=== PATIENT | male | born 1990 | race African-American/Black ===

== ENCOUNTER 2019-08-29 22:14 | Emergency (ER) | payer OTHER, SELFPAY ==
[2019-08-29 22:15] VITALS: BP 134/81; PULSE 89; RESP 16; TEMP 37; O2SAT 99; BMI 24.3
[2019-08-29 22:56] VITALS: BP 139/75; PULSE 87; RESP 18; O2SAT 99
[2019-08-29 23:16] VITALS: BP 141/84; PULSE 79; RESP 18; O2SAT 99
[2019-08-29 23:22] LABS: Chloride 105 mmol/L (98-107); Potassium 4.1 mmoL/L (3.5-5.1); Sodium 139 mmol/L (136-145)
[2019-08-29 23:25] LABS: Alanine Aminotransferase 42 U/L (12-78); Albumin Level 4.5 g/dl (3.5-5.0); Albumin/Globulin Ratio 1.6 (1.1-1.8); Alkaline Phosphatase 50 U/L (38-126); Anion Gap 9.1 mEq/L (5-15); Aspartate Amino Transferase 40 U/L (17-59); Bilirubin,Total 1.2 mg/dl (0.2-1.3); Blood Urea Nitrogen 17 mg/dl (9-20); Carbon Dioxide 29 mmol/L (22.0-30.0); Creatinine Clearance Estimated 111 mL/min (50-200); Estimated Glomerular Filt Rate 72 ml/min (>60); GFR (African American) 87 ML/MIN (>60); Globulin 2.9 g/dL (1.3-3.2); Total Protein,Serum 7.4 g/dl (6.3-8.2)
[2019-08-29 23:26] LABS: Calcium 9.2 mg/dl (8.4-10.2); Glucose 84 mg/dl (74-100)
[2019-08-29 23:31] LABS: Basophils % 0.5 % (0.1-2.0); Eosinophils # 0.1 K/mm3 (0.0-0.4); Eosinophils % 1.8 % (0.1-12.0); Hematocrit 43.7 % (42.0-52.0); Hemoglobin 15.2 g/dL (14.1-18.0); Lymphocytes # 2.3 K/mm3 (0.7-4.5); Lymphocytes % 43.2 % (10-50); Mean Corpuscular HGB Conc 34.9 g/dL (31.8-35.4); Mean Corpuscular Hemoglobin 30.4 pg (27.0-31.2); Mean Platelet Volume 7.3 fl (7.4-10.4); Monocytes # 0.2 K/mm3 (0.1-1.0); Monocytes % 4.4 % (1.7-9.3); Neutrophils # 2.6 K/mm3 (1.8-7.8); Neutrophils % 50.1 % (37.0-80.0); Platelet Count 310 K/mm3 (142-424); Red Blood Count 5.02 M/mm3 (4.60-6.20); Red Cell Distribution Width 13.2 % (11.5-17.5); White Blood Count 5.2 K/mm3 (4.8-10.8)
--- NOTE | 2019-08-29 23:40 | HMH.EDGENADL ---
ED Disposition Clinical Impression: Otitis media Qualifiers: Otitis media type: unspecified Chronicity: acute Qualified Code(s): H66.90 - Otitis media, unspecified, unspecified ear Disposition: Home, Self-Care Condition on Discharge: Good Instructions: DI for Ear Pain-Adult Additional Instructions: await covid results and quaratine till recieved Prescriptions: cephALEXin [Keflex 500mg Cap] 500 mg PO TID #30 cap Prescription Printed predniSONE [Prednisone 20mg Tab] 20 mg PO BID #10 tab Prescription Printed Referrals: Chaka Joaquin MD [Primary Care Provider] - - Critical Care Critical Care Time: No Attestation: On 08/29/19, the high probability of a clinically significant, sudden or life threatening deterioration of the following system(s) required my full and direct attention, intervention and personal management. The time I documented below is in addition to time spent performing reported procedures but includes the following listed in this critical care notation. Medical Decision Making - Medical Records Medical records reviewed: Yes: I reviewed the patient's medical records. - Juan Inquiry Pt receiving controlled substance: No Vital Signs: 08/29/19 22:15 08/29/19 22:56 08/29/19 23:16 Temperature 98.6 F Temperature Source Oral Pulse Rate [Left Radial] 89 87 79 Respiratory Rate 16 18 18 Blood Pressure [Right Arm] 134/81 139/75 141/84 H Blood Pressure Mean [Right Arm] 98 96 103 Blood Pressure Source [Right Arm] Automatic Cuff Blood Pressure Position [Right Arm] Sitting 02 Sat by Pulse Oximetry 99 99 99 Oxygen Delivery Method Room Air Room Air Room Air - Lab Data Lab results reviewed: Yes: I reviewed the patient's lab results. Lab Results 08/29/19 23:02: WBC 5.2, RBC 5.02, Hgb 15.2, Hct 43.7, MCV 87.0, MCH 30.4, MCHC 34.9, RDW 13.2, Plt Count 310, MPV 7.3 L, Neut % (Auto) 50.1, Lymph % (Auto) 43.2, Bent % (Auto) 4.4, Eos % (Auto) 1.8, Baso % (Auto) 0.5, Neut # (Auto) 2.6, Lymph # (Auto) 2.3, Bent # (Auto) 0.2, Eos # (Auto) 0.1, Baso # (Auto) 0.0 08/29/19 23:02: Sodium 139, Potassium 4.1, Chloride 105, Carbon Dioxide 29, Anion Gap 9.1, BUN 17, Creatinine 1.20, Estimated Creat Clear 111, Estimated GFR 72, Est GFR ( Amer) 87, Glucose 84, Calcium 9.2, Total Bilirubin 1.2, AST 40, ALT 42, Alkaline Phosphatase 50, Total Protein 7.4, Albumin 4.5, Globulin 2.9, Albumin/Globulin Ratio 1.6 08/29/19 23:02: SARS-CoV-2 IgG Ab (Rapid) Negative, SARS-CoV-2 IgM Ab (Rapid) Negative Result diagrams: 08/29/19 23:02 08/29/19 23:02 Orders (Tests/Meds): ORDERS Category Date Time Status SARS-CoV-2, LACI Stat Lab 08/29/19 22:52 Received Urinalysis and Microscopic Stat Lab 08/29/19 23:42 Ordered General Adult HPI - General Chief complaint: Recheck/Abnormal Lab/Rx Stated complaint: fever Time Seen by Provider: 08/29/19 23:41 Mode of Arrival: Ambulatory Source of Information: Patient, Spouse, Medical Record Limitations: No Limitations Description of Symptoms (Recalled from ER Triage Doc. by RN): pt works at [employer] and came in from his lunch break from smoking outside and the [employer] body scanner read his temp. as high . [facility] [employer] group leader sent him for evaluation. pt denies any symptoms at this time. - History of Present Illness HPI narrative: sent from work with elevated temp and concern about covid exposure - he has no known exposure - no cough or resp sx but has rt ear feels full over the last few days - no rash - Onset (ago): hour(s) Severity: mild Associated symptoms: denies other symptoms Treatments prior to arrival: none - Related Data Previous Rx's Medication Instructions Recorded Fluconazole [Diflucan 100mg tablet] 100 mg PO DAILY #5 tab 05/16/19 Minocycline HCl [Minocycline HCl 100 mg PO BID #20 tab 05/16/19 100mg Tab*] cephALEXin [Keflex 500mg Cap] 500 mg PO TID #30 cap 08/30/19 predniSONE [Prednisone 20mg 20 mg PO BID #10 tab 08/30/19 Tab] Allergies
[2019-08-29 23:51] LABS: Coronavirus 19 IgG Antibody Negative (Negative); Coronavirus 19 IgM Antibody Negative (Negative)
[2019-08-30 00:09] VITALS: BP 152/89; PULSE 84; RESP 18; O2SAT 99
[2019-08-30 00:11] VITALS: BP 150/78; PULSE 82; RESP 14; TEMP 37; O2SAT 99
[2019-08-31 15:37] LABS: Covid-19 Nasal PCR Sendout Lex NOT DETECTED
== END 2019-08-30 00:14 | disposition home or self-care (01) ==
PROVIDERS: Emergency Provider Emergency Medicine; PCP Family Medicine
DX: H66.91 Otitis media, unspecified, right ear (principal); F17.210 Nicotine dependence, cigarettes, uncomplicated
CPT/HCPCS: 36415; 80053; 85025; 86328; 99283; U0004

== ENCOUNTER → 2019-11-28 12:32 | Outpatient (CLI) | payer OTHER, SELFPAY ==
--- NOTE | 2019-11-28 12:36 | CT_ITS ---
PROCEDURE: CT ABDOMEN PELVIS WO CON CLINICAL INDICATION: TESTICLE PAIN,FLANK PAIN bilateral testicle and flank pain x months COMPARISON: No exams were available for comparison TECHNIQUE: Axial images obtained with sagittal and coronal reformats. All CT scans at the facility use one or more dose reduction, viz: automated exposure control, ma/kV adjustment per patient size (including targeted exams where dose is matched to indication, i.e. head), or iterative reconstruction technique. FINDINGS: LOWER THORAX: The lung bases are clear. ABDOMEN & PELVIS: The exam is very limited due to lack of IV and oral contrast and due to patient's lack body fat. The liver, gallbladder, spleen, adrenal glands, and kidneys have an unremarkable appearance. No renal or ureteral calculi. The pancreas is poorly delineated but no obvious pancreatic mass or pancreatitis apparent. Multiple unopacified bowel loops in the abdomen or pelvis which could obscure or mimic pathology. If symptoms persist, consider repeat exam with IV and oral contrast.. No evidence of appendicitis. No intestinal obstruction or free air. A sclerotic focus is present in the sacrum on the right anteriorly may be due to a bone island measuring approximately 12 mm. No acute bony anomalies. Small bone island also suspected in the right acetabulum in the left femoral head. IMPRESSION: 1. No definite acute finding. 2. Multiple unopacified bowel loops in the abdomen or pelvis which could obscure or mimic pathology. If symptoms persist, consider repeat exam with IV and oral contrast. Dictated by: Flaquito Pitts MD 11/29/2019 10:42 Flaquito Pitts MD in [place] 11/29/2019 10:42
== END ==
PROVIDERS: PCP Family Medicine; Visit Provider Nurse Practitioner
DX: R10.9 Unspecified abdominal pain (principal); N50.819 Testicular pain, unspecified
CPT/HCPCS: 74176

== ENCOUNTER 2020-01-20 19:44 | Emergency (ER) | payer OTHER, SELFPAY ==
[2020-01-20 19:55] VITALS: BP 150/91; PULSE 160; RESP 18; TEMP 37.2; O2SAT 98; BMI 22.4
--- NOTE | 2020-01-20 20:16 | HMH.EDURI ---
ED Disposition Clinical Impression: Pharyngitis Qualifiers: Pharyngitis/tonsillitis etiology: unspecified etiology Qualified Code(s): J02.9 - Acute pharyngitis, unspecified Disposition: Home, Self-Care Condition on Discharge: Good Instructions: Sore Throat Additional Instructions: use meds and see pcp and ent for follow up Prescriptions: cephALEXin [Keflex 500mg Cap] 500 mg PO TID #30 cap Prescription Printed predniSONE [Prednisone 20mg Tab] 20 mg PO BID #10 tab Prescription Printed Referrals: Chaka Joaquin MD [Primary Care Provider] - - Critical Care Critical Care Time: No Attestation: On 01/20/20, the high probability of a clinically significant, sudden or life threatening deterioration of the following system(s) required my full and direct attention, intervention and personal management. The time I documented below is in addition to time spent performing reported procedures but includes the following listed in this critical care notation. Medical Decision Making - Medical Records Medical records reviewed: Yes: I reviewed the patient's medical records. - Juan Inquiry Pt receiving controlled substance: No Vital Signs: 01/20/20 19:55 Temperature 99.0 F Temperature Source Oral Pulse Rate [Right Brachial] 160 H Respiratory Rate 18 Blood Pressure [Right Arm] 150/91 H Blood Pressure Mean [Right Arm] 110 Blood Pressure Source [Right Arm] Automatic Cuff Blood Pressure Position [Right Arm] Sitting 02 Sat by Pulse Oximetry 98 Oxygen Delivery Method Room Air - Lab Data Lab results reviewed: Yes: I reviewed the patient's lab results. Lab Results 01/20/20 20:10: WBC 7.4, RBC 5.55, Hgb 15.8, Hct 47.9, MCV 86.3, MCH 28.5, MCHC 33.1, RDW 12.8, Plt Count 310, MPV 7.6, Neut % (Auto) 59.1, Lymph % (Auto) 34.9, [place] % (Auto) 4.9, Eos % (Auto) 0.8, Baso % (Auto) 0.3, Neut # (Auto) 4.4, Lymph # (Auto) 2.6, [place] # (Auto) 0.4, Eos # (Auto) 0.1, Baso # (Auto) 0.0, ESR 2 01/20/20 20:10: Sodium 138, Potassium 3.0 L, Chloride 101, Carbon Dioxide 26, Anion Gap 14.0, BUN 15, Creatinine 1.10, Estimated Creat Clear 105, Estimated GFR 79, Est GFR ( Amer) 96, Glucose 117 H, Calcium 9.7, Total Bilirubin 1.5 H, AST 38, ALT 39, Alkaline Phosphatase 75, C-Reactive Protein 2.8, Total Protein 8.0, Albumin 4.8, Globulin 3.2, Albumin/Globulin Ratio 1.5 01/20/20 20:10: Lactate 2.1 Result diagrams: 01/20/20 20:10 01/20/20 20:10 Orders (Tests/Meds): ED MEDICATIONS Discontinued Medications Generic Name Dose Route Start Last Admin Trade Name Freq PRN Reason Stop Dose Admin Cephalexin HCl 500 mg 01/20/20 22:05 Cephalexin 500mg Capsule PO 01/20/20 22:06 ONCE ONE Protocol Methylprednisolone Sodium Succinate 125 mg 01/20/20 22:05 Methylprednisolone Sod Succ 125mg Vial IV 01/20/20 22:06 ONCE ONE ORDERS Category Date Time Status CT soft tissue neck w con Stat Cat Scan 01/20/20 20:19 Ordered XR chest 2V Stat Exams 01/20/20 20:19 Taken Blood Culture Stat Micro 01/20/20 20:10 Received - Radiology Data #1 Image(s): Chest Image Reviewed: Yes I reviewed the patient's radiology image Preliminary Findings: Normal/NAD - CT Data CT Scan: Other (soft tissue) Time Received: 22:[address] Reviewed: Yes: I have viewed the radiologist's interpretation Preliminary Findings: Normal/NAD - Reevaluation(s) Time: 22:17 Reevaluation #1: improved URI/Sore Throat HPI - General Chief Complaint: Dental/Oral Stated Complaint: Throat pain Time Seen by Provider: 01/20/20 20:15 Mode of Arrival: Family Vehicle Source of Information: Patient, Significant Other, Medical Record Limitations: No Limitations Description of Symptoms (Recalled from ER Triage Doc. by RN): pt presents with complaints of several weeks of swollen interior of throat. states he will take some amoxicillin and it improves and then gets worse. states he has been mentioning it to his dentist and to his doctor but
--- NOTE | 2020-01-20 20:19 | XR_ITS ---
PROCEDURE: XR CHEST 2V Referring Doctor: Jimmy Phelps Patient Age:29Y CLINICAL HISTORY: pain when swallowing . Neck pain pharyngitis COMPARISON: CT CT ABDOMEN PELVIS WO CON from 11/28/[address] SOFT TISSUE NECK W CON from 01/20/2020 FINDINGS: PA and lateral CXR are but no previous chest films. The chest partially imaged on a CT abdomen from 11/19/2019 The lungs appear well expanded with no peripheral pneumonia or infiltrate. No areas of consolidation. No lung mass or discrete lung lesion. Central markings upper normal prominence. Suspect this may in part reflect thin body habitus along with upper normal vessels and markings centrally. The hilar regions are generous but normal. Superior mediastinum appears satisfactory. Heart normal size but no pleural effusion or pneumothorax but chest wall in T-spine intact IMPRESSION: Nothing definitely acute Peripheral lung mejia clear and unremarkable.. Central markings upper normal prominence Dictated by: David Hurt MD 01/21/2020 18:35 David Hurt MD in [place] 01/21/2020 18:35
--- NOTE | 2020-01-20 20:19 | CT_ITS ---
PROCEDURE: CT SOFT TISSUE NECK W CON Referring Doctor: Jimmy Phelps Patient Age:29Y CLINICAL HISTORY: pain when swallowing Pain or swallowing persisting for months feels better when he applies pressure anteriorly to the neck to the right of the neck of the level of C7 COMPARISON: CT CT ABDOMEN PELVIS WO CON from 11/28/2019 CR XR CHEST 2V from 01/20/2020 TECHNIQUE: Oral Contrast: None IV Contrast: None Axial images obtained with sagittal and coronal reformats. All CT scans at the facility use one or more dose reduction, viz: automated exposure control, ma/kV adjustment per patient size (including targeted exams where dose is matched to indication, i.e. head), or iterative reconstruction technique. FINDINGS: Thin patient no masses or adenopathy evident. This is an inadequate study for the soft tissues of the superior neck anteriorly as they are cut off superior to the hyoid. However the soft tissues of the lower neck below the hyoid appear satisfactory. There is a generous size trachea in this thin patient which may conceivably yield some mild restriction upon the esophagus immediately posterior to it. (With this I would speculate that if patient pushes on his neck from he would slightly displace the trachea rightward possibly relieving some of the mild pressure upon the esophagus immediately posterior to the trachea.) . The level of the trachea and epiglottis appears satisfactory. Only modest lingual tonsil noted. The vallecula and piriform sinuses of the thumb also generous caliber appears satisfactory otherwise we do visualize the region the vascular bundles and these areas are grossly unremarkable although the lack of fat and limited scan of the neck superiorly limit evaluation at and anterior to the vascular bundles at superior The osseous cervical spine show slight reversal of the normal cervical curvature from C4-C7. Is slightly generous distance between this the spinous processes C5 and C6 noted but the most likely normal but could reflect old injury with some borderline narrowing anteriorly at C5/6 level contributing to this slight reversal of cervical curvature. The patient also has a un slightly unusually tall vertebra at T1 and T2 of which reflect some minor variant anatomy and may contribute to the slight reversal of cervical curvature as underlying developmental feature No appreciable mass or adenopathy here at the neck below the hyoid. Only few small nodes supraclavicular region. Left lung apex but there 8.6 times 4.7 mm nodule at the left apex but fairly dense for size and in this age patient suspect most likely reflects developing benign granuloma partially calcified a given its density is near 300. Alternatively this could reflect ectatic enhancing vessel branch. V RC report suggested follow-up CT chest. A to be cautious a follow-up 3-5 the months could be performed to confirm stability particularly since the patient is a smoker although again I favor the in this younger age this is much more likely incidental developing benign granulomatous nodule IMPRESSION: Today's CT evaluates the infrahyoid soft tissues of the neck-but does not visualize the more superior and anterior suprahyoid soft tissues the neck. Thus somewhat limited CT neck study The infrahyoid soft tissues the neck appears satisfactory with no mass. From provided history lower neck is where the patient has symptoms. . Would note generous caliber trachea which may slightly compress the esophagus immediately posterior to it here at the lower C-spine in this thin patient. Questionable significance regarding symptoms-note brief discussion in text. Slight reversal of normal cervical curvature from C4-C7.
[2020-01-20 20:34] LABS: Basophils % 0.3 % (0.1-2.0); Eosinophils # 0.1 K/mm3 (0.0-0.4); Eosinophils % 0.8 % (0.1-12.0); Hematocrit 47.9 % (42.0-52.0); Hemoglobin 15.8 g/dL (14.1-18.0); Lymphocytes # 2.6 K/mm3 (0.7-4.5); Lymphocytes % 34.9 % (10-50); Mean Corpuscular HGB Conc 33.1 g/dL (31.8-35.4); Mean Corpuscular Hemoglobin 28.5 pg (27.0-31.2); Mean Corpuscular Volume 86.3 fl (80-94); Mean Platelet Volume 7.6 fl (7.4-10.4); Monocytes # 0.4 K/mm3 (0.1-1.0); Monocytes % 4.9 % (1.7-9.3); Neutrophils # 4.4 K/mm3 (1.8-7.8); Neutrophils % 59.1 % (37.0-80.0); Platelet Count 310 K/mm3 (142-424); Red Blood Count 5.55 M/mm3 (4.60-6.20); Red Cell Distribution Width 12.8 % (11.5-17.5); White Blood Count 7.4 K/mm3 (4.8-10.8)
[2020-01-20 20:40] LABS: Alanine Aminotransferase 39 U/L (12-78); Albumin Level 4.8 g/dl (3.5-5.0); Albumin/Globulin Ratio 1.5 (1.1-1.8); Alkaline Phosphatase 75 U/L (38-126); Aspartate Amino Transferase 38 U/L (17-59); Bilirubin,Total 1.5 mg/dl (0.2-1.3); Blood Urea Nitrogen 15 mg/dl (9-20); Calcium 9.7 mg/dl (8.4-10.2); Carbon Dioxide 26 mmol/L (22.0-30.0); Chloride 101 mmol/L (98-107); Creatinine Clearance Estimated 105 mL/min (50-200); Estimated Glomerular Filt Rate 79 ml/min (>60); GFR (African American) 96 ML/MIN (>60); Globulin 3.2 g/dL (1.3-3.2); Glucose 117 mg/dl (74-100); Sodium 138 mmol/L (136-145)
[2020-01-20 20:43] LABS: Lactic Acid 2.1 mmol/L (0.7-2.1)
[2020-01-20 20:46] LABS: C-Reactive Protein 2.8 mg/L (0-4)
[2020-01-20 21:20] LABS: Erythrocyte Sedimentation Rate 2 mm/hr (0-15)
[2020-01-20 22:26] VITALS: BP 130/83; PULSE 75; RESP 16; TEMP 36.8; O2SAT 98
== END 2020-01-20 22:54 | disposition home or self-care (01) ==
PROVIDERS: Emergency Provider Emergency Medicine; PCP Family Medicine
DX: J02.9 Acute pharyngitis, unspecified (principal); F17.210 Nicotine dependence, cigarettes, uncomplicated
CPT/HCPCS: 70491; 71046; 80053; 83605; 85025; 85651; 86140; 87040; 96365; 99282; Q9967

== ENCOUNTER → 2020-03-12 13:34 | Outpatient (CLI) | payer OTHER, SELFPAY ==
--- NOTE | 2020-03-12 13:35 | CT_ITS ---
PROCEDURE: CT FACIAL BONES WO/W CON CLINICAL HISTORY: right nostril- ear ring under skin? possible nose ring stuck in right nostril right ear [place] pain x 6 months...possibly stuck by sewing needle 75ml iso 370 no prior COMPARISON: No exams were available for comparison TECHNIQUE: Axial images obtained with sagittal and coronal reformats. All CT scans at the facility use one or more dose reduction, viz: automated exposure control, ma/kV adjustment per patient size (including targeted exams where dose is matched to indication, i.e. head), or iterative reconstruction technique. FINDINGS: No radiopaque foreign body apparent. No evidence foreign body within the nasal cavity. No enhancing lesions evident. No evidence abscess paranasal sinuses have an unremarkable appearance as do the mastoid sinuses and orbits. IMPRESSION: Negative facial CT without and with contrast. No radiopaque foreign body abscess or other significant anomaly. Dictated by: Flaquito Pitts MD 03/13/2020 15:16 Flaquito Pitts MD in [place] 03/13/2020 15:16
== END ==
PROVIDERS: PCP Family Medicine; Visit Provider Otolaryngology
DX: T17.1XXA Foreign body in nostril, initial encounter (principal)
CPT/HCPCS: 70488; Q9967

== ENCOUNTER → 2020-04-18 11:40 | Outpatient (CLI) | payer OTHER, SELFPAY ==
--- NOTE | 2020-04-18 12:15 | PC.NURSE ---
PFT Completed without incident. Albuterol 0.083% given via [facility] per written protocol, Pt tolerated tx well.
--- NOTE | 2020-04-18 12:37 | CT_ITS ---
PROCEDURE: CT CHEST W CON CLINCAL INDICATION: Pulmonary nodule Follow up lung nodule seen on neck soft tissue CT COMPARISON: Neck CT 01/20/2020 TECHNIQUE: IV Contrast: 75ml Isovue 370 Axial images obtained with sagittal and coronal reformats. All CT scans at the facility use one or more dose reduction, viz: automated exposure control, ma/kV adjustment per patient size (including targeted exams where dose is matched to indication, i.e. head), or iterative reconstruction technique. FINDINGS: There is significant respiratory motion on the exam. This reduces image quality and diagnostic accuracy. Several small partly calcified left apical lung nodules are unchanged in size or appearance compared with 01/20/2020. These most likely represent benign granulomas or smoking related changes, however continue monitoring with follow-up chest CT in 6 months is recommended to confirm stability. IMPRESSION: No change. Follow-up chest x-ray recommended in 6 months to confirm stability. Dictated by: Willa Jackson MD 04/18/2020 15:37 Willa Jackson MD in [place] 04/18/2020 15:37
== END ==
PROVIDERS: PCP Family Medicine; Visit Provider Internal Medicine Pulmonary Disease
DX: R06.09 Other forms of dyspnea (principal); R91.1 Solitary pulmonary nodule
CPT/HCPCS: 71260; 94060; 94726; 94729; Q9967

== ENCOUNTER → 2020-04-23 14:07 | Outpatient (CLI) | payer OTHER, SELFPAY ==
--- NOTE | 2020-04-23 14:10 | XR_ITS ---
PROCEDURE: XR NASAL BONES MIN 3V CLINICAL INDICATION: FOREIGN BODY IN NOSE COMPARISON: No exams were available for comparison FINDINGS: No fracture or dislocation. No lytic or blastic change. There is normal mineralization. The joint spaces are well-preserved. No significant degenerative/arthritic changes. No erosive changes evident. Other findings:No radiopaque foreign body apparent IMPRESSION: No acute findings. Dictated by: Flaquito Pitts MD 04/23/2020 16:38 Flaquito Pitts MD in [place] 04/23/2020 16:38
== END ==
PROVIDERS: PCP Family Medicine; Visit Provider Otolaryngology
DX: T17.1XXA Foreign body in nostril, initial encounter (principal)
CPT/HCPCS: 70160

== ENCOUNTER → 2020-08-12 13:17 | Outpatient (CLI) | payer OTHER, SELFPAY ==
--- NOTE | 2020-08-12 13:22 | XR_ITS ---
PROCEDURE: XR RIBS LT MIN 3V W CXR1V CLINICAL INDICATION: LT RIB PAIN COMPARISON: CR XR CHEST 2V from 01/20/[address] CHEST W CON from 04/18/2020 FINDINGS: PA chest is normal. Lungs are clear. No pleural effusion or pneumothorax. Heart size is normal. Views of the left ribs show no fracture or other rib abnormality. IMPRESSION: Normal PA chest and left ribs. Dictated by: Dane Blandon 08/12/2020 15:47 Dane Blandon in [place] 08/12/2020 15:47
[2020-08-14 12:48] LABS: Alpha-1-Antitrypsin 135 mg/dL (95-164)
[2020-08-17 00:07] LABS: Aspergillus flavus Negative (Neg:<1:1); Aspergillus fumigatus Negative (Neg:<1:1); Aspergillus niger Negative (Neg:<1:1); Blastomyces Antibody Negative (Neg:<1:1)
== END ==
PROVIDERS: Internal Medicine Pulmonary Disease; PCP Nurse Practitioner Family; Visit Provider Nurse Practitioner Family
DX: J84.10 Pulmonary fibrosis, unspecified (principal); J44.9 Chronic obstructive pulmonary disease, unspecified
CPT/HCPCS: 71101; 82103; 86606; 86612

== ENCOUNTER → 2021-04-11 14:40 | Outpatient (CLI) | payer OTHER, SELFPAY ==
--- NOTE | 2021-04-11 14:43 | CT_ITS ---
FINAL REPORT TECHNIQUE: Axial images were obtained from the lung apex to the mid abdomen by computed tomography. Coronal reformatted images were obtained. This study was performed with techniques to keep radiation doses as low as reasonably achievable, (ALARA). Individualized dose reduction techniques using automated exposure control or adjustment of mA and/or kV according to the patient''s size were employed. CLINICAL HISTORY: 12-month follow-up COMPARISON: CT of neck soft tissue dated January 20, [address] with contrast dated April 18, 2020 FINDINGS: There is no axillary adenopathy. There is no hilar or mediastinal adenopathy. Heart size is normal. There is no pericardial or pleural effusion. Limited images of the upper abdomen are unremarkable. There are multiple calcified granulomas in the left upper lobe. There is a branching opacity in the posterior left lung apex measuring 8 mm and was 8 mm. There is a 2nd nodular opacity adjacent to this that is partially calcified and measures 8 mm and was 8 mm. No new mass or nodule is identified. IMPRESSION: Stable left apical nodular opacities, most likely represent sequela of prior granulomatous disease. No new mass or nodule is identified. No acute abnormality. Reviewed, Interpreted and Dictated by Hiram Hong III, MD Transcribed by Di Briceño Authenticated by Hiram Hong III, MD on 04/11/2021 04:09:14 PM [facility]
== END ==
PROVIDERS: PCP Family Medicine; Visit Provider Internal Medicine Pulmonary Disease
DX: R91.8 Other nonspecific abnormal finding of lung field (principal)
CPT/HCPCS: 71250

== ENCOUNTER 2022-09-03 17:06 | Emergency (ER) | payer OTHER, SELFPAY ==
[2022-09-03 17:06] VITALS: BP 123/84; PULSE 61; RESP 18; TEMP 36.7; O2SAT 96; BMI 23.7
--- NOTE | 2022-09-03 17:26 | EXP.UTC ---
Discharge Plan Disposition Patient Disposition: Home, Self-Care Condition: Good Prescriptions Prescriptions: New benzonatate [benzonatate] 100 mg capsule 100 mg PO TIDP PRN (Reason: Cough) Qty: 30 0RF amoxicillin-pot clavulanate 875-125 mg Tablet 1 tab PO Q12H Qty: 20 0RF triamcinolone acetonide 0.1 % cream 1 applic topical BID PRN (Reason: itching) Qty: 30 0RF methylprednisolone 4 mg Tablets,Dose Pack 4 mg PO DIRECTED Qty: 21 0RF No Action albuterol sulfate 90 mcg/actuation HFA aerosol inhaler 1 inh INHALATION QID PRN (Reason: shortness of breath or wheezing) Qty: 8.5 4RF Vraylar 1.5 mg capsule 1.5 mg PO DAILY Qty: 30 0RF Referrals Follow up/Referrals: Chaka Joaquin MD [Primary Care Provider] - See instructions Activity Restrictions/Add. Instructions Additional Instructions/Restrictions: Drink plenty of fluids. Take tylenol or ibuprofen for pain or fever. The triamcinolone cream is a steroid cream for the rash on your legs. Don't put the it on your face or your groin. Take the medications as directed. Follow up with your regular doctor. GO TO THE ER FOR ANY WORSENING SYMPTOMS Clinical Impressions Clinical Impression: Asthma exacerbation, Contact dermatitis of lower leg Stand Alone Forms Stand Alone Forms: Work/School Release Instructions Patient Instructions: DI for Asthma -- Adult, DI for Contact Dermatitis, Triamcinolone Topical Discharge ED Provider: Dane Hope [facility] General Stated complaint: cough, congestion, rash Mode of Arrival: Ambulatory Source of Information: Patient Limitations: No Limitations Time Seen by Provider: 09/03/22 17:26 Description of Symptoms (Recalled from Triage Doc. by RN): Patient reports coughing, congestion and rash for a few days. HEENT Symptoms (Recalled from RN notes): Yes Resp Symptoms (Recalled from RN notes): No Skin Symptoms (Recalled from RN notes): No MS Symptoms (Recalled from RN notes): No Functional Status (Recalled from RN notes): wnl History of Present Illness Provider Complaint: He states he has had a sore throat and chest congestion for the past 3 days. Related Data Previous Rx's Medication Instructions Recorded albuterol sulfate 90 mcg/actuation 1 inh inhalation QID PRN shortness 03/25/20 aerosol inhaler of breath or wheezing #8.5 grams cariprazine 1.5 mg capsule 1.5 mg PO DAILY #30 caps 07/12/20 (Vraylar) amoxicillin 875 mg-potassium 1 tab PO Q12H #20 tabs 09/03/22 clavulanate 125 mg tablet benzonatate 100 mg capsule 100 mg PO TIDP PRN Cough #30 caps 09/03/22 methylprednisolone 4 mg tablets in 4 mg PO DIRECTED #21 tabs 09/03/22 a dose pack triamcinolone acetonide 0.1 % 1 applic topical BID PRN itching 09/03/22 topical cream #30 grams Allergies Allergy/AdvReac Type Severity Reaction Status Date / Time No Known Allergies Allergy Verified 10/21/20 13:30 Worker's Comp Is this a Worker's Comp case?: No [facility] Disclaimer: The information contained in this section may have been updated after the patient was seen, as this information can be updated by other users. Social History Smoking Status: Current every day smoker alcohol intake: current substance use type: denies use and marijuana current occupational status: employed and unemployed Travel in the last 8 weeks: None number of children: 2 ROS Obtained: Yes All systems reviewed & no additional complaints except as documented Constitutional Constitutional: Reports chills and Reports fever(s) Eyes Eyes: Denies eye discharge ENT Ears, Nose, Mouth, and Throat: Reports as per HPI Cardiovascular Cardiovascular: Denies chest pain Respiratory Respiratory: Denies chest congestion and Reports cough Gastrointestinal Gastrointestingal: Reports nausea; Denies abdominal pain, constipation, cramping, diarrhea or vomiting Musculoskeletal Musculoskeletal: Denies arth
[2022-09-03 17:58] LABS: UTC Strep Screen (Rapid) Negative (Negative)
[2022-09-03 18:05] VITALS: BP 123/84; PULSE 61; RESP 18; TEMP 36.7; O2SAT 96
== END 2022-09-03 18:06 | disposition home or self-care (01) ==
PROVIDERS: Emergency Provider Nurse Practitioner Family; PCP Family Medicine
DX: J45.901 Unspecified asthma with (acute) exacerbation (principal); L25.9 Unspecified contact dermatitis, unspecified cause; F17.210 Nicotine dependence, cigarettes, uncomplicated
CPT/HCPCS: 87880; 99204; 99212; 99214; G0463

== ENCOUNTER 2022-11-20 10:59 | Emergency (ER) | payer OTHER, SELFPAY ==
--- NOTE | 2022-11-20 11:12 | EXP.UTC ---
Discharge Plan Disposition Patient Disposition: Home, Self-Care Condition: Good Prescriptions Prescriptions: New prednisone 20 mg tablet 20 mg PO BID Qty: 10 0RF [id number] [Bromfed DM] 2-30-10 mg/5 mL syrup 5 - 10 ml PO Q4H PRN (Reason: Cough) Qty: 240 0RF No Action albuterol sulfate 90 mcg/actuation HFA aerosol inhaler 1 inh INHALATION QID PRN (Reason: shortness of breath or wheezing) Qty: 8.5 4RF Vraylar 1.5 mg capsule 1.5 mg PO DAILY Qty: 30 0RF benzonatate [benzonatate] 100 mg capsule 100 mg PO TIDP PRN (Reason: Cough) Qty: 30 0RF amoxicillin-pot clavulanate 875-125 mg Tablet 1 tab PO Q12H Qty: 20 0RF triamcinolone acetonide 0.1 % cream 1 applic topical BID PRN (Reason: itching) Qty: 30 0RF methylprednisolone 4 mg Tablets,Dose Pack 4 mg PO DIRECTED Qty: 21 0RF Referrals Follow up/Referrals: Chaka Joaquin MD [Primary Care Provider] - See instructions Clinical Impressions Clinical Impression: Upper respiratory infection Stand Alone Forms Stand Alone Forms: Work/School Release Instructions Patient Instructions: DI for Viral Upper Respiratory Infection -- [place] [facility] [place] General Stated complaint: cought congestion Time Seen by Provider: 11/20/22 11:49 History of Present Illness Provider Complaint: Cough, congestion X 2-3 days. No fever. Denies ear pain. Mild sore throat. No vomiting. Some diarrhea. Nyquil helped a little. Onset (ago): day(s) (3) Relieving factors: none Exacerbating factors: none Associated symptoms: cough Treatments prior to arrival: none Related Data Previous Rx's Medication Instructions Recorded albuterol sulfate 90 mcg/actuation 1 inh inhalation QID PRN shortness 03/25/20 aerosol inhaler of breath or wheezing #8.5 grams cariprazine 1.5 mg capsule 1.5 mg PO DAILY #30 caps 07/12/20 (Vraylar) amoxicillin 875 mg-potassium 1 tab PO Q12H #20 tabs 09/03/22 clavulanate 125 mg tablet benzonatate 100 mg capsule 100 mg PO TIDP PRN Cough #30 caps 09/03/22 methylprednisolone 4 mg tablets in 4 mg PO DIRECTED #21 tabs 09/03/22 a dose pack triamcinolone acetonide 0.1 % 1 applic topical BID PRN itching 09/03/22 topical cream #30 grams ijzrpwyjeurcgeu-nnzripgapyuanpd-QD 5 - 10 ml PO Q4H PRN Cough #240 mL 11/20/22 2 mg-30 mg-10 mg/5 mL oral syrup (Bromfed DM) prednisone 20 mg tablet 20 mg PO BID #10 tabs 11/20/22 Allergies Allergy/AdvReac Type Severity Reaction Status Date / Time No Known Allergies Allergy Verified 10/21/20 13:30 PFSH PFS Disclaimer: The information contained in this section may have been updated after the patient was seen, as this information can be updated by other users. Medical History (Updated 11/20/22 @ 11:56 by TRICIA Henriquez) Anxiety Asthma Depression Social History Smoking Status: Current every day smoker alcohol intake: current substance use type: denies use and marijuana current occupational status: employed and unemployed Travel in the last 8 weeks: None number of children: 2 ROS Obtained: Yes All systems reviewed & no additional complaints except as documented Constitutional Constitutional: Reports chills and Reports fever(s) Eyes Eyes: Denies eye discharge ENT Ears, Nose, Mouth, and Throat: Reports as per HPI, Reports nasal discharge and Reports sore throat Cardiovascular Cardiovascular: Denies chest pain Respiratory Respiratory: Denies chest congestion and Reports cough Gastrointestinal Gastrointestingal: Reports nausea; Denies abdominal pain, constipation, cramping, diarrhea or vomiting Musculoskeletal Musculoskeletal: Denies arthralgias Integumentary/Breasts Skin/Breast: Denies rash Neurologic Neurologic: Denies paresthesias Physical Exam General General appearance: alert and in no apparent distress Head Head exam: atraumatic, normocephalic and normal inspection Eye Ey
[2022-11-20 11:20] VITALS: BP 141/88; PULSE 89; RESP 17; TEMP 36.9; O2SAT 98; BMI 22.5
[2022-11-20 11:53] VITALS: BP 141/88; PULSE 89; RESP 17; TEMP 36.9; O2SAT 98
== END 2022-11-20 12:04 | disposition home or self-care (01) ==
PROVIDERS: Emergency Provider Physician Assistant; PCP Family Medicine
DX: J02.9 Acute pharyngitis, unspecified (principal); J06.9 Acute upper respiratory infection, unspecified; F17.210 Nicotine dependence, cigarettes, uncomplicated; J45.909 Unspecified asthma, uncomplicated; F41.9 Anxiety disorder, unspecified; F32.A Depression, unspecified
CPT/HCPCS: 99212; 99214; G0463

== ENCOUNTER 2023-03-04 14:42 | Emergency (ER) | payer OTHER, SELFPAY ==
[2023-03-04 14:45] VITALS: BP 128/80; PULSE 84; RESP 18; TEMP 36.9; O2SAT 96; BMI 24.0
--- NOTE | 2023-03-04 14:56 | EXP.UTC ---
Discharge Plan Disposition Patient Disposition: Home, Self-Care Condition: Good Referrals Follow up/Referrals: Chaka Joaquin MD [Primary Care Provider] - See instructions Activity Restrictions/Add. Instructions Additional Instructions/Restrictions: Drink plenty of fluids. Take tylenol for pain or fever. Return if you begin to have difficulty breathing. Follow up with your regular doctor. GO TO THE ER FOR ANY WORSENING SYMPTOMS Clinical Impressions Clinical Impression: Exposure to 2019 novel coronavirus Stand Alone Forms Stand Alone Forms: Work/School Release Instructions Patient Instructions: Coronavirus Disease 2019, Preventing the Spread of Coronavirus Discharge Instructions Discharge ED Provider: Dane Hope [facility] [place] HPI General Stated complaint: covid exposure Time Seen by Provider: 03/04/23 14:56 History of Present Illness Provider Complaint: He has been exposed to covid-19 by his girlfriend currently having it. He denies any symptoms but he needs a covid-19 test before he can return to work. Related Data Allergies Allergy/AdvReac Type Severity Reaction Status Date / Time No Known Allergies Allergy Verified 03/04/23 15:05 [facility] Disclaimer: The information contained in this section may have been updated after the patient was seen, as this information can be updated by other users. Medical History (Updated 03/04/23 @ 15:09 by Dane Hope APRN) Anxiety Asthma Depression Social History Smoking Status: Current every day smoker alcohol intake: current substance use type: denies use and marijuana current occupational status: employed and unemployed Travel in the last 8 weeks: None number of children: 2 ROS Obtained: Yes All systems reviewed & no additional complaints except as documented Constitutional Constitutional: Denies chills and Denies fever(s) Eyes Eyes: Denies eye discharge ENT Ears, Nose, Mouth, and Throat: Denies dizziness, Denies otalgia and Denies sore throat Cardiovascular Cardiovascular: Denies chest pain Respiratory Respiratory: Denies shortness of breath, Denies chest congestion, Denies cough, Denies stridor and Denies wheezing Gastrointestinal Gastrointestingal: Denies nausea or vomiting Musculoskeletal Musculoskeletal: Reports system reviewed and no additional complaints, except as documented and Denies arthralgias Integumentary/Breasts Skin/Breast: Denies rash Neurologic Neurologic: Denies dizziness and Denies paresthesias Allergic/Immunologic Allergic/Immunologic: Denies wheezing Physical Exam General General appearance: alert and in no apparent distress Head Head exam: atraumatic, normocephalic and normal inspection Eye Eye exam: Present normal appearance, PERRL and EOMI ENT ENT exam: Present normal exam, normal oropharynx, mucous membranes moist, TM's normal bilaterally and normal external ear exam Neck Neck exam: Present normal inspection, full ROM and trachea midline; Absent meningismus or lymphadenopathy Chest Chest inspection: Present normal inspection and symmetric chest wall rise; Absent tenderness Respiratory Respiratory exam: Present normal lung sounds bilaterally; Absent respiratory distress Cardiovascular Cardiovascular exam: Present regular rate and normal rhythm; Absent JVD Abdominal Exam Abdominal exam: Present soft and normal bowel sounds; Absent distention, tenderness or guarding Extremities Exam Extremities exam: Present normal inspection, full ROM and normal capillary refill; Absent calf tenderness Back Exam Back exam: Present normal inspection; Absent tenderness Neurological Exam Neurological exam: Present alert and oriented X3 Psychiatric Psychiatric exam: Present normal affect and normal mood Skin Skin exam: Present warm, dry, intact and normal color Lymphatic Lymphatic Findings: no adenopathy Medical Decision Making Medical Records Medical records reviewed: No I reviewed the patient's medical records. Juan Inquiry Pt receiving controlled substance: No
[2023-03-04 15:16] VITALS: BP 128/80; PULSE 84; RESP 18; TEMP 36.9; O2SAT 95
== END 2023-03-04 15:16 | disposition home or self-care (01) ==
PROVIDERS: Emergency Provider Nurse Practitioner Family; PCP Family Medicine
DX: Z20.822 Contact with and (suspected) exposure to COVID-19 (principal); J45.909 Unspecified asthma, uncomplicated; F41.9 Anxiety disorder, unspecified; F17.200 Nicotine dependence, unspecified, uncomplicated; F32.A Depression, unspecified
CPT/HCPCS: 87635; 99212; G0463